=== PATIENT | male | born 1965 | race African-American/Black ===

== ENCOUNTER 2019-11-25 09:39 | Inpatient (IN) ==
[2019-11-25] MEDS ORDERED: CEFUROXIME INJ 1,500 MG in SYRINGE 1 EACH IV ONE (09:44)
[2019-11-25] MEDS ORDERED: DEXTROSE 50% 25 GM/50 ML VIAL IV PRN ×2 (09:44)
[2019-11-25] MEDS ORDERED: GLUCAGON 1 MG VIAL IM PRN ×2 (09:44)
[2019-11-25] MEDS ORDERED: SODIUM CHLORIDE 0.9% 1,000 ML IV SCH (10:00)
[2019-11-25 10:19] LABS: Basophils % 0.6 % (0.0-0.8); Eosinophils # 0.1 10*3/uL (0.0-0.87); Eosinophils % 2.2 % (0.00-10.9); Hematocrit 40.3 VOL% (42.0-52.0); Hemoglobin 13.3 GM/DL (14.0-18.0); Immature Granulocytes % 0.2 %; Immature Granulocytes Absolute 0.01 #; Lymphocytes % 31.8 % (21.2-54.2); Mean Platelet Volume 12.4 FL (9.6-12.0); Monocytes % 8.2 % (1.7-12.7); Platelet Count 165 T/CUMM (130-400); Red Blood Count 4.43 MC/CUMM (3.8-5.5); Red Cell Distribution Width 14.6 % (9.3-17.3); White Blood Count 6.4 T/CUMM (4-12)
[2019-11-25] MEDS ORDERED: MORPHINE 4 MG/1 ML VIAL IV PRN (10:23)
[2019-11-25] MEDS ORDERED: CLORAZEPATE 3.75 MG TABLET PO PRN (10:23)
[2019-11-25] MEDS ORDERED: ZALEPLON 5 MG CAPSULE PO PRN (10:23)
[2019-11-25] MEDS ORDERED: NITROGLYCERIN SL 0.4 MG TABLET SL PRN (10:24)
[2019-11-25 10:35] LABS: Hypochromasia 1+; Microcytosis Slight; Platelet Estimate Adequate
[2019-11-25 10:39] LABS: ABG Base Excess -1.7 MMOL/L (-2.5-2.5); ABG Oxygen Saturation 97.4 % (95-100); ABG PCO2 37.9 MM HG (35-48); ABG PH 7.389 (7.35-7.45); ABG PO2 93.7 MM HG (80-95)
[2019-11-25 10:42] LABS: Albumin 3.4 G/DL (3.4-5.0); Bilirubin,Total 0.7 MG/DL (0.2-1.0); Calcium 8.7 MG/DL (8.5-10.1); Osmolality,Calculated 284.7 MOS/KG (273-304); Total Protein 8.2 G/DL (6.4-8.3)
[2019-11-25] MEDS: ASPIRIN CHEW 81 MG TABLET PO SCH (10:53)
[2019-11-25] MEDS: cloNIDine 0.1 MG TABLET PO SCH ×3 (10:53→20:52)
[2019-11-25] MEDS: amLODIPine 10 MG TABLET PO SCH (10:55)
[2019-11-25] MEDS: PANTOPRAZOLE 40 MG TABLET PO SCH (10:55)
[2019-11-25] MEDS: INSULIN LISPRO 100 UNIT/ML SUBCUT SCH ×3 (11:32→23:27)
[2019-11-25] MEDS: CHLORHEXIDINE 0.12% ORAL RINSE 60 ML BOTTLE SWISH/SPIT SCH ×2 (12:00→20:58)
[2019-11-25] MEDS: CHLORHEXIDINE 4% SOLN 118 ML BOTTLE TOP SCH ×2 (15:08→20:53)
[2019-11-25] MEDS: ATORVASTATIN 20 MG TABLET PO SCH (20:52)
[2019-11-25] MEDS ORDERED: CALCIFEDIOL 30 MCG PO SCH (21:00)
[2019-11-26] MEDS ORDERED: PAPAVERINE 60 MG/2 ML VIAL ONE (04:20)
[2019-11-26] MEDS ORDERED: VANCOMYCIN 500 MG VIAL ONE (04:21)
[2019-11-26] MEDS ORDERED: VANCOMYCIN 1,000 MG VIAL ONE (04:21)
[2019-11-26] MEDS ORDERED: FAMOTIDINE 20 MG TABLET PO ONE (06:00)
[2019-11-26] MEDS ORDERED: METOPROLOL TARTRATE 25 MG TABLET PO ONE (06:00)
[2019-11-26] MEDS ORDERED: DIAZEPAM 5 MG TABLET PO ONE (06:00)
[2019-11-26] MEDS ORDERED: SUFentanil 250 MCG/5 ML AMP ONE (06:10)
[2019-11-26] MEDS ORDERED: MIDAZOLAM 10 MG/2 ML VIAL ONE (06:10)
[2019-11-26] MEDS ORDERED: CEFUROXIME INJ 1,500 MG in SYRINGE 1 EACH IV ONE (07:00)
[2019-11-26] MEDS ORDERED: SODIUM CHLORIDE 0.9% 1,000 ML IV SCH (07:00)
[2019-11-26] MEDS ORDERED: SODIUM BICARBONATE 50 MEQ/50 ML VIAL IV ONE ×2 (07:10→10:48)
[2019-11-26] MEDS ORDERED: NITROPRUSSIDE 50 MG/2 ML VIAL ONE (07:10)
[2019-11-26] MEDS ORDERED: CALCIUM CHLORIDE 1,000 MG/10 ML SYRINGE IV ONE (07:10)
[2019-11-26] MEDS ORDERED: PHENYLEPHRINE DRIP 40 MG/250 ML PREMIX IV ONE (07:10)
[2019-11-26] MEDS ORDERED: POTASSIUM CHLORIDE RIDER 100 ML IV ONE (07:11)
[2019-11-26] MEDS: INSULIN LISPRO 100 UNIT/ML SUBCUT SCH ×2 (07:30→11:30)
[2019-11-26 07:42] LABS: ABG Base Excess -1.7 MMOL/L (-2.5-2.5); ABG HCO3 23.1 MMOL/L (20-26); ABG Oxygen Saturation 99.9 % (95-100); ABG PCO2 37.5 MM HG (35-48); ABG PH 7.393 (7.35-7.45); ABG TCO2 20.2 MMOL/L (23-27); Glucose Heart Surgery 284 MG/DL (74-106); Hematocrit Heart Surgery 37.2 PERCENT (42-52); Hemoglobin Heart Surgery 12.1 G/DL (14.0-18.0); PCO2 Patient Temp Arterial 37.5 MMHG; PH Patient Temp Arterial 7.393; Patient Temperature 37 CELCIUS; Potassium Heart/CVR 4.3 MMOL/L (3.5-5.1); Sodium Heart/CVR 139 MMOL/L (135-145)
[2019-11-26 07:52] LABS: Apearance,Urine CLEAR (Clear); Bacteria,Urine Occasional /HPF (Few); Bilirubin,Urine Negative (Negative); Blood, Urine Small mg/dL (Negative); Glucose,Urine (UA) >=500 mg/dL (Negative); Ketones,Urine Negative (Negative); Nitrite,Urine Negative (Negative); Protein,Urine 30 MG/DL; RBC,Urine 1 /HPF (0-4); Squamous Epithelial Cell,Urine Occasional /HPF (0-10); Urine Color Straw (Yellow); Urine Specific Gravity 1.014 (1.001-1.035); Urine Urobilinogen < 2.0 EU/DL (0.2-1.0); WBC,Urine <1 /HPF (0-6)
[2019-11-26] MEDS: CHLORHEXIDINE 0.12% ORAL RINSE 60 ML BOTTLE SWISH/SPIT SCH (09:00)
[2019-11-26] MEDS: cloNIDine 0.1 MG TABLET PO SCH (09:00)
[2019-11-26] MEDS: amLODIPine 10 MG TABLET PO SCH (09:00)
[2019-11-26] MEDS: PANTOPRAZOLE 40 MG TABLET PO SCH (09:00)
[2019-11-26] MEDS: ASPIRIN CHEW 81 MG TABLET PO SCH (09:00)
[2019-11-26] MEDS: ATORVASTATIN 20 MG TABLET PO SCH (09:00)
[2019-11-26] MEDS: CHLORHEXIDINE 4% SOLN 118 ML BOTTLE TOP SCH (09:00)
[2019-11-26 09:21] LABS: Hematocrit Heart Surgery 23.9 PERCENT (42-52); PCO2 Patient Temp Venous 29.8 MM HG; PH Patient Temp Venous 7.481; PO2 Patient Temp Venous 40.2 MM HG; Potassium Heart/CVR 5.2 MMOL/L (3.5-5.1); VBG Base Excess -0.7 MEQ/L (0-4); VBG HCO3 23.7 MEQ/L (24-28); VBG Oxygen Saturation 87.5 %; VBG PCO2 34.4 MMHG (41-51); VBG PH 7.436; VBG PO2 49.3 MMHG (17-40)
[2019-11-26 09:23] LABS: Hemoglobin Heart Surgery 7.7 G/DL (14.0-18.0)
[2019-11-26] MEDS ORDERED: PHENYLEPHRINE DRIP 20 MG/250 ML PREMIX IV ONE (09:28)
[2019-11-26] MEDS ORDERED: HEPARIN/NACL 0.9% 2 UNITS/ML 500 ML IV ONE (09:28)
[2019-11-26] MEDS ORDERED: VECURONIUM 10 MG VIAL IV ONE ×2 (09:29→12:41)
[2019-11-26] MEDS ORDERED: NITROGLYCERIN DRIP 50 MG/250 ML BOTTLE IV ONE (09:29)
[2019-11-26 09:56] LABS: Hematocrit Heart Surgery 28.4 PERCENT (42-52); Hemoglobin Heart Surgery 9.2 G/DL (14.0-18.0); PCO2 Patient Temp Venous 26.3 MM HG; PH Patient Temp Venous 7.519; PO2 Patient Temp Venous 32.7 MM HG; Potassium Heart/CVR 3.9 MMOL/L (3.5-5.1); VBG Base Excess -0.7 MEQ/L (0-4); VBG HCO3 23.6 MEQ/L (24-28); VBG Oxygen Saturation 79.5 %; VBG PCO2 30.4 MMHG (41-51); VBG PH 7.474; VBG PO2 40.3 MMHG (17-40)
[2019-11-26 10:27] LABS: Hematocrit Heart Surgery 28.7 PERCENT (42-52); Hemoglobin Heart Surgery 9.2 G/DL (14.0-18.0); PCO2 Patient Temp Venous 31.3 MM HG; PH Patient Temp Venous 7.463; PO2 Patient Temp Venous 38.2 MM HG; Potassium Heart/CVR 3.9 MMOL/L (3.5-5.1); VBG Base Excess -0.7 MEQ/L (0-4); VBG HCO3 23.5 MEQ/L (24-28); VBG Oxygen Saturation 76.5 %; VBG PCO2 31.3 MMHG (41-51); VBG PH 7.463; VBG PO2 38.2 MMHG (17-40)
[2019-11-26] MEDS ORDERED: THROMBIN TOPICAL (RECOMBINANT) 5,000 UNIT VIAL TOP ONE (10:30)
[2019-11-26] MEDS ORDERED: MANNITOL 100 GM/500 ML BAG IV ONE (10:47)
[2019-11-26] MEDS ORDERED: LIDOCAINE 2% 5 ML VIAL ONE ×2 (10:47→12:41)
[2019-11-26] MEDS ORDERED: HEPARIN 10,000 UNIT/10 ML VIAL ONE (10:48)
[2019-11-26] MEDS ORDERED: PROTAMINE SULFATE 250 MG/25 ML VIAL IV ONE (10:48)
[2019-11-26] MEDS ORDERED: FUROSEMIDE 20 MG/2 ML VIAL ONE (10:48)
[2019-11-26] MEDS ORDERED: MAGNESIUM SULFATE 5 GM/10 ML VIAL IV ONE (10:48)
[2019-11-26] MEDS ORDERED: ALBUMIN 25% 25 GM/100 ML VIAL IV ONE (10:48)
[2019-11-26] MEDS ORDERED: DEXTROSE 5% KCL 20 MEQ 20 MEQ/1,000 ML BAG IV ONE (10:48)
[2019-11-26] MEDS ORDERED: methylPREDNISolone SOD SUC 1,000 MG/8 ML VIAL ONE (10:48)
[2019-11-26] MEDS ORDERED: PROTAMINE SULFATE 50 MG/5 ML VIAL IV ONE ×2 (10:49→12:18)
[2019-11-26 10:54] LABS: ABG Base Excess -2.8 MMOL/L (-2.5-2.5); ABG HCO3 22.1 MMOL/L (20-26); ABG Oxygen Saturation 99.9 % (95-100); ABG PCO2 28.2 MM HG (35-48); ABG PH 7.464 (7.35-7.45); ABG TCO2 18.8 MMOL/L (23-27); Glucose Heart Surgery 283 MG/DL (74-106); Hematocrit Heart Surgery 25.8 PERCENT (42-52); Hemoglobin Heart Surgery 8.3 G/DL (14.0-18.0); Ionized Calcium Arterial 1.13 MMOL/L (1.21-1.46); PCO2 Patient Temp Arterial 28.2 MMHG; PH Patient Temp Arterial 7.464; Patient Temperature 37 CELCIUS; Potassium Heart/CVR 3.5 MMOL/L (3.5-5.1); Sodium Heart/CVR 136 MMOL/L (135-145)
[2019-11-26] MEDS ORDERED: CALCIUM CHLORIDE 1,000 MG/10 ML SYRINGE IV PRN (11:32)
[2019-11-26] MEDS ORDERED: MIDAZOLAM 2 MG/2 ML VIAL IV PRN (11:32)
[2019-11-26] MEDS ORDERED: POTASSIUM CHLORIDE RIDER 10 MEQ in PREMIX 1 EACH IV SCH (11:32)
[2019-11-26] MEDS ORDERED: MAGNESIUM SULF RIDER 2 GM in PREMIX 1 EACH IV PRN (11:32)
[2019-11-26] MEDS ORDERED: VECURONIUM 10 MG VIAL IV PRN ×2 (11:32)
[2019-11-26] MEDS ORDERED: CHLORHEXIDINE 4% SOLN 118 ML BOTTLE TOP PRN (11:32)
[2019-11-26] MEDS ORDERED: DEXTROSE 10% 250 ML BAG IV PRN ×2 (11:32)
[2019-11-26] MEDS ORDERED: MIDAZOLAM 10 MG/2 ML VIAL IV PRN (11:32)
[2019-11-26] MEDS ORDERED: ACETAMINOPHEN 650 MG SUPP RECTAL PRN (11:32)
[2019-11-26] MEDS ORDERED: ONDANSETRON 4 MG/2 ML VIAL IV PRN (11:32)
[2019-11-26] MEDS ORDERED: INSULIN REGULAR 100 UNIT/ML IV PRN (11:32)
[2019-11-26] MEDS ORDERED: MORPHINE 4 MG/1 ML VIAL IV PRN (11:32)
[2019-11-26] MEDS ORDERED: INSULIN REGULAR DRIP 100 ML IV SCH (11:32)
[2019-11-26] MEDS ORDERED: NITROPRUSSIDE 100 MG in DEXTROSE 5% 250 ML IV PRN (11:32)
[2019-11-26] MEDS ORDERED: INSULIN REGULAR 100 UNIT/ML IV ONE (11:32)
[2019-11-26] MEDS ORDERED: MORPHINE 10 MG/1 ML VIAL IV PRN (11:32)
[2019-11-26] MEDS ORDERED: MAGNESIUM SULF RIDER 4 GM in PREMIX 1 EACH IV PRN (11:32)
[2019-11-26] MEDS ORDERED: SODIUM CHLORIDE 0.45% 1,000 ML IV SCH ×2 (11:32)
[2019-11-26] MEDS ORDERED: PHENYLEPHRINE DRIP 40 MG/250 ML PREMIX IV PRN (11:32)
[2019-11-26 12:30] LABS: ABG Base Excess -3.1 MMOL/L (-2.5-2.5); ABG HCO3 21.8 MMOL/L (20-26); ABG PCO2 30.1 MM HG (35-48); ABG PH 7.438 (7.35-7.45); ABG TCO2 18.8 MMOL/L (23-27); Glucose Heart Surgery 244 MG/DL (74-106); Hematocrit Heart Surgery 26.3 PERCENT (42-52); Hemoglobin Heart Surgery 8.5 G/DL (14.0-18.0)
[2019-11-26] MEDS: LACTATED RINGERS 250 ML IV PRN ×5 (12:30→23:00)
[2019-11-26 12:32] LABS: Basophils % 0.3 % (0.0-0.8); Eosinophils # 0.1 10*3/uL (0.0-0.87); Eosinophils % 0.7 % (0.00-10.9); Hematocrit 25.2 VOL% (42.0-52.0); Hemoglobin 8.4 GM/DL (14.0-18.0); Immature Granulocytes % 0.4 %; Immature Granulocytes Absolute 0.03 #; Lymphocytes # 0.8 10*3/uL (1.4-4.0); Lymphocytes % 11.6 % (21.2-54.2); Mean Corpuscular HGB Conc 33.3 GM/DL (32-36); Mean Corpuscular Volume 89.7 FL (87-102); Mean Platelet Volume 12.2 FL (9.6-12.0); Monocytes % 7.2 % (1.7-12.7); Neutrophils % 79.8 % (38.7-73.9); Platelet Count 97 T/CUMM (130-400); Red Blood Count 2.81 MC/CUMM (3.8-5.5); Red Cell Distribution Width 14.3 % (9.3-17.3)
[2019-11-26] MEDS: ALBUMIN 5% 12.5 GM in PREMIX 1 EACH IV PRN ×4 (12:35→14:50)
[2019-11-26] MEDS: POTASSIUM CHLORIDE RIDER 20 MEQ in PREMIX 1 EACH IV PRN ×7 (12:40→23:14)
[2019-11-26] MEDS ORDERED: ePHEDrine 50 MG/ML VIAL ONE (12:41)
[2019-11-26] MEDS ORDERED: SEVOFLURANE 1 UNIT/15 MINUTE INH ONE (12:41)
[2019-11-26] MEDS ORDERED: CALCIUM CHLORIDE 1,000 MG/10 ML VIAL IV ONE (12:41)
[2019-11-26] MEDS ORDERED: GLYCOPYRROLATE 0.4 MG/2 ML VIAL ONE (12:42)
[2019-11-26] MEDS ORDERED: SODIUM CHLORIDE 0.9% 250 ML IV ONE (12:42)
[2019-11-26] MEDS ORDERED: LACTATED RINGERS 1,000 ML IV ONE (12:42)
[2019-11-26] MEDS ORDERED: SODIUM CHLORIDE 0.9% 3,000 ML IV ONE (12:42)
[2019-11-26] MEDS ORDERED: SODIUM CHLORIDE 0.9% 200 ML IV ONE (12:42)
[2019-11-26] MEDS ORDERED: ETOMIDATE 40 MG/20 ML VIAL IV ONE (12:42)
[2019-11-26 12:46] LABS: INR 1.4; PT Patient Result 14.6 SECS (9.8-11.9); Partial Thromboplastin Time 36.5 SECS (23.9-33.8)
[2019-11-26 12:53] LABS: Albumin 2.5 G/DL (3.4-5.0); Bilirubin,Total 1.4 MG/DL (0.2-1.0); Calcium 7.2 MG/DL (8.5-10.1); Osmolality,Calculated 299.6 MOS/KG (273-304); Total Protein 4.7 G/DL (6.4-8.3)
[2019-11-26 13:06] LABS: CKMB % 4.5 %
[2019-11-26 13:08] LABS: Troponin I 5.84 NG/ML (0.00-0.045)
[2019-11-26 14:42] LABS: ABG Base Excess -3.4 MMOL/L (-2.5-2.5); ABG HCO3 21.6 MMOL/L (20-26); ABG Oxygen Saturation 99.5 % (95-100); ABG PCO2 28.4 MM HG (35-48); ABG PH 7.447 (7.35-7.45); ABG TCO2 17.7 MMOL/L (23-27); Glucose Heart Surgery 191 MG/DL (74-106); Hematocrit Heart Surgery 32.6 PERCENT (42-52); Hemoglobin Heart Surgery 10.6 G/DL (14.0-18.0); Potassium Heart/CVR 3.3 MMOL/L (3.5-5.1)
[2019-11-26 16:14] LABS: ABG Base Excess -3.4 MMOL/L (-2.5-2.5); ABG HCO3 19.1 MMOL/L (20-26); ABG Oxygen Saturation 98.4 % (95-100); ABG PH 7.485 (7.35-7.45); ABG PO2 172.5 MM HG (80-95); ABG TCO2 19.9 MMOL/L (23-27); Glucose Heart Surgery 157 MG/DL (74-106); Hemoglobin Heart Surgery 9.2 G/DL (14.0-18.0)
[2019-11-26 18:06] LABS: ABG Base Excess -2.2 MMOL/L (-2.5-2.5); ABG HCO3 19.9 MMOL/L (20-26); ABG Oxygen Saturation 98.5 % (95-100); ABG PCO2 24.7 MM HG (35-48); ABG PH 7.525 (7.35-7.45); ABG PO2 180.9 MM HG (80-95); ABG TCO2 20.7 MMOL/L (23-27); Glucose Heart Surgery 157 MG/DL (74-106); Hemoglobin Heart Surgery 7.9 G/DL (14.0-18.0); Potassium Heart/CVR 3.8 MMOL/L (3.5-5.1)
[2019-11-26] MEDS: CEFUROXIME INJ 1,500 MG in SYRINGE 1 EACH IV SCH (19:47)
[2019-11-26 20:06] LABS: ABG Base Excess -1.9 MMOL/L (-2.5-2.5); ABG HCO3 20.2 MMOL/L (20-26); ABG Oxygen Saturation 98.6 % (95-100); ABG PCO2 25.8 MM HG (35-48); ABG PH 7.512 (7.35-7.45); ABG PO2 190.8 MM HG (80-95); Glucose Heart Surgery 150 MG/DL (74-106); Hemoglobin Heart Surgery 9.6 G/DL (14.0-18.0); Potassium Heart/CVR 3.8 MMOL/L (3.5-5.1)
[2019-11-26 20:27] LABS: CKMB % 2.4 %
[2019-11-26 20:29] LABS: Troponin I 11.8 NG/ML (0.00-0.045)
[2019-11-26] MEDS ORDERED: CHLORHEXIDINE 0.12% ORAL RINSE 60 ML BOTTLE SWISH/SPIT SCH (21:00)
[2019-11-26] MEDS ORDERED: FUROSEMIDE 40 MG/4 ML VIAL IV ONE (22:42)
[2019-11-27 00:10] LABS: ABG Base Excess -1.3 MMOL/L (-2.5-2.5); ABG HCO3 20.4 MMOL/L (20-26); ABG Oxygen Saturation 98.7 % (95-100); ABG PCO2 25.6 MM HG (35-48); ABG PO2 166.8 MM HG (80-95); ABG TCO2 21.2 MMOL/L (23-27); Glucose Heart Surgery 106 MG/DL (74-106); Hemoglobin Heart Surgery 11.2 G/DL (14.0-18.0); Potassium Heart/CVR 4.1 MMOL/L (3.5-5.1)
[2019-11-27 01:25] LABS: ABG Base Excess -1.2 MMOL/L (-2.5-2.5); ABG HCO3 23.4 MMOL/L (20-26); ABG Oxygen Saturation 99.8 % (95-100); ABG PCO2 27.9 MM HG (35-48); ABG PH 7.487 (7.35-7.45); ABG TCO2 18.9 MMOL/L (23-27); Glucose Heart Surgery 105 MG/DL (74-106); Hematocrit Heart Surgery 34.1 PERCENT (42-52); Hemoglobin Heart Surgery 11.1 G/DL (14.0-18.0); Potassium Heart/CVR 3.9 MMOL/L (3.5-5.1)
[2019-11-27] MEDS: POTASSIUM CHLORIDE RIDER 20 MEQ in PREMIX 1 EACH IV PRN ×2 (01:33→02:05)
[2019-11-27 02:21] LABS: ABG Base Excess -2.1 MMOL/L (-2.5-2.5); ABG HCO3 22.6 MMOL/L (20-26); ABG Oxygen Saturation 99.3 % (95-100); ABG PH 7.424 (7.35-7.45); ABG TCO2 19.3 MMOL/L (23-27); Glucose Heart Surgery 125 MG/DL (74-106); Hematocrit Heart Surgery 33.8 PERCENT (42-52); Potassium Heart/CVR 4.7 MMOL/L (3.5-5.1)
[2019-11-27 04:25] LABS: ABG Base Excess -3.2 MMOL/L (-2.5-2.5); ABG HCO3 21.7 MMOL/L (20-26); ABG Oxygen Saturation 97.6 % (95-100); ABG PCO2 35.9 MM HG (35-48); ABG PH 7.381 (7.35-7.45); ABG PO2 91.4 MM HG (80-95); ABG TCO2 19.2 MMOL/L (23-27); Glucose Heart Surgery 182 MG/DL (74-106); Potassium Heart/CVR 5.2 MMOL/L (3.5-5.1)
[2019-11-27 05:06] LABS: Albumin 3.7 G/DL (3.4-5.0); Bilirubin,Direct 0.26 MG/DL (0.0-0.20); Bilirubin,Total 1.4 MG/DL (0.2-1.0); Calcium 8.2 MG/DL (8.5-10.1); Osmolality,Calculated 292.8 MOS/KG (273-304); Total Protein 6.3 G/DL (6.4-8.3)
[2019-11-27 05:10] LABS: CKMB % 1.5 %
[2019-11-27 05:49] LABS: Troponin I 13.7 NG/ML (0.00-0.045)
[2019-11-27] MEDS: CEFUROXIME INJ 1,500 MG in SYRINGE 1 EACH IV SCH (06:34)
[2019-11-27 06:44] LABS: Basophils % 0.2 % (0.0-0.8); Hematocrit 31.7 VOL% (42.0-52.0); Hemoglobin 10.9 GM/DL (14.0-18.0); Immature Granulocytes % 0.3 %; Immature Granulocytes Absolute 0.04 #; Lymphocytes # 0.6 10*3/uL (1.4-4.0); Lymphocytes % 4.6 % (21.2-54.2); Mean Corpuscular HGB Conc 34.4 GM/DL (32-36); Mean Corpuscular Volume 84.5 FL (87-102); Mean Platelet Volume 12.4 FL (9.6-12.0); Monocytes % 4.8 % (1.7-12.7); Neutrophils % 90.1 % (38.7-73.9); Platelet Count 140 T/CUMM (130-400); Red Blood Count 3.75 MC/CUMM (3.8-5.5); Red Cell Distribution Width 15.7 % (9.3-17.3); White Blood Count 12.1 T/CUMM (4-12)
[2019-11-27 07:52] LABS: Band Neutrophils 6 % (0-10); Lymphocytes 3 % (20-55); Segmented Neutrophils 88 % (50-85); Total Cells Counted 100
[2019-11-27 07:53] LABS: Hypochromasia 2+; Platelet Estimate Adequate
[2019-11-27 07:54] LABS: Anisocytosis 1+; Macrocytosis 1+; Ovalocytes 1+
[2019-11-27] MEDS ORDERED: INSULIN REGULAR 100 UNIT/ML SUBCUT SCH ×2 (08:00→11:30)
[2019-11-27 08:16] LABS: ABG Base Excess -1.8 MMOL/L (-2.5-2.5); ABG HCO3 22.9 MMOL/L (20-26); ABG Oxygen Saturation 96.4 % (95-100); ABG PCO2 35.2 MM HG (35-48); ABG PO2 77.9 MM HG (80-95); ABG TCO2 20.1 MMOL/L (23-27); Glucose Heart Surgery 158 MG/DL (74-106); Hematocrit Heart Surgery 33.2 PERCENT (42-52); Hemoglobin Heart Surgery 10.7 G/DL (14.0-18.0); Potassium Heart/CVR 4.3 MMOL/L (3.5-5.1)
[2019-11-27] MEDS ORDERED: MORPHINE 4 MG/1 ML VIAL IV PRN (08:55)
[2019-11-27] MEDS ORDERED: ONDANSETRON 4 MG/2 ML VIAL IV PRN (08:55)
[2019-11-27] MEDS ORDERED: MAGNESIUM SULF RIDER 2 GM in PREMIX 1 EACH IV PRN (08:55)
[2019-11-27] MEDS ORDERED: POTASSIUM CHLORIDE 20 MEQ TABLET PO PRN (08:55)
[2019-11-27] MEDS ORDERED: DEXTROSE 50% 25 GM/50 ML VIAL IV PRN ×2 (08:55)
[2019-11-27] MEDS ORDERED: ALUMINUM/MAGNES/SIMETH MAX STR 30 ML UDCUP PO PRN (08:55)
[2019-11-27] MEDS ORDERED: MAGNESIUM SULF RIDER 4 GM in PREMIX 1 EACH IV PRN (08:55)
[2019-11-27] MEDS ORDERED: ZALEPLON 5 MG CAPSULE PO PRN (08:55)
[2019-11-27] MEDS ORDERED: GLUCAGON 1 MG VIAL IM PRN ×2 (08:55)
[2019-11-27] MEDS ORDERED: MAGNESIUM HYDROXIDE SUSP 30 ML UDCUP PO PRN (08:55)
[2019-11-27] MEDS ORDERED: ACETAMINOPHEN 325 MG TABLET PO PRN (08:55)
[2019-11-27] MEDS ORDERED: BIMATOPROST 0.01% OPH SOLN 2.5 ML BOTTLE BOTH EYES SCH (09:00)
[2019-11-27] MEDS: FUROSEMIDE 40 MG TABLET PO SCH (09:14)
[2019-11-27] MEDS: PANTOPRAZOLE 40 MG TABLET PO SCH (09:14)
[2019-11-27] MEDS: sitaGLIPtin 25 MG TABLET PO SCH (09:14)
[2019-11-27] MEDS: ATORVASTATIN 20 MG TABLET PO SCH (09:14)
[2019-11-27] MEDS: ASPIRIN EC 325 MG TABLET PO SCH (09:14)
[2019-11-27] MEDS: cloNIDine 0.1 MG TABLET PO SCH ×3 (09:14→22:26)
[2019-11-27] MEDS: FERROUS SULFATE 325 MG TABLET PO SCH (09:15)
[2019-11-27] MEDS: DOCUSATE SODIUM 100 MG CAPSULE PO SCH (09:15)
[2019-11-27] MEDS: CHLORHEXIDINE 0.12% ORAL RINSE 60 ML BOTTLE SWISH/SPIT SCH ×2 (09:15→22:28)
[2019-11-27] MEDS: METOPROLOL SUCCINATE XL 25 MG TABLET PO SCH (09:15)
[2019-11-27] MEDS: SODIUM CHLOR 0.45% KCL 20 MEQ 20 MEQ/1,000 ML BAG IV SCH (09:25)
[2019-11-27] MEDS: amLODIPine 10 MG TABLET PO SCH (09:31)
[2019-11-27] MEDS: INSULIN REGULAR 100 UNIT/ML SUBCUT SCH ×3 (11:54→22:26)
[2019-11-27] MEDS ORDERED: INSULIN GLARGINE 100 UNIT/ML SUBCUT SCH (21:00)
[2019-11-28] MEDS: INSULIN REGULAR 100 UNIT/ML SUBCUT SCH ×6 (02:43→22:02)
[2019-11-28] MEDS ORDERED: FUROSEMIDE 40 MG/4 ML VIAL IV ONE (06:00)
[2019-11-28 06:44] LABS: Basophils % 0.2 % (0.0-0.8); Hematocrit 34.6 VOL% (42.0-52.0); Hemoglobin 11.1 GM/DL (14.0-18.0); Immature Granulocytes % 1.4 %; Immature Granulocytes Absolute 0.17 #; Lymphocytes # 0.9 10*3/uL (1.4-4.0); Mean Corpuscular HGB Conc 32.1 GM/DL (32-36); Mean Corpuscular Volume 90.8 FL (87-102); Mean Platelet Volume 12.3 FL (9.6-12.0); Monocytes % 9.1 % (1.7-12.7); Neutrophils % 82.3 % (38.7-73.9); Platelet Count 127 T/CUMM (130-400); Red Blood Count 3.81 MC/CUMM (3.8-5.5); Red Cell Distribution Width 16.6 % (9.3-17.3); White Blood Count 12.4 T/CUMM (4-12)
[2019-11-28 07:13] LABS: Alanine Aminotransferase 18 U/L (16-61); Albumin 3.2 G/DL (3.4-5.0); Alkaline Phosphatase 51 U/L (45-117); Aspartate Amino Transferase 32 U/L (0-37); Bilirubin,Indirect 0.6 MG/DL (0.0-1.0); Blood Urea Nitrogen 30 MG/DL (7-18); Estimated Glom Filtration Rate 45 ML/MIN; Glucose 236 MG/DL (74-106); Osmolality,Calculated 296.1 MOS/KG (273-304); Total Protein 6.5 G/DL (6.4-8.3)
[2019-11-28] MEDS: sitaGLIPtin 25 MG TABLET PO SCH (09:17)
[2019-11-28] MEDS: PANTOPRAZOLE 40 MG TABLET PO SCH (09:18)
[2019-11-28] MEDS: METOPROLOL SUCCINATE XL 25 MG TABLET PO SCH (09:18)
[2019-11-28] MEDS: ATORVASTATIN 20 MG TABLET PO SCH (09:18)
[2019-11-28] MEDS: amLODIPine 10 MG TABLET PO SCH (09:18)
[2019-11-28] MEDS: FERROUS SULFATE 325 MG TABLET PO SCH (09:18)
[2019-11-28] MEDS: FUROSEMIDE 40 MG TABLET PO SCH (09:18)
[2019-11-28] MEDS: cloNIDine 0.1 MG TABLET PO SCH ×3 (09:18→22:02)
[2019-11-28] MEDS: DOCUSATE SODIUM 100 MG CAPSULE PO SCH (09:18)
[2019-11-28] MEDS: ASPIRIN EC 325 MG TABLET PO SCH (09:18)
[2019-11-28] MEDS: CHLORHEXIDINE 0.12% ORAL RINSE 60 ML BOTTLE SWISH/SPIT SCH ×2 (09:19→22:03)
[2019-11-28] MEDS: SODIUM CHLOR 0.45% KCL 20 MEQ 20 MEQ/1,000 ML BAG IV SCH (09:26)
[2019-11-29] MEDS: INSULIN REGULAR 100 UNIT/ML SUBCUT SCH ×6 (00:51→21:02)
[2019-11-29] MEDS: oxyCODONE/ACETAMINOPHEN 5-325 MG TABLET PO PRN (00:54)
[2019-11-29 06:20] LABS: Basophils % 0.1 % (0.0-0.8); Eosinophils # 0.1 10*3/uL (0.0-0.87); Eosinophils % 0.5 % (0.00-10.9); Hematocrit 32.3 VOL% (42.0-52.0); Hemoglobin 10.4 GM/DL (14.0-18.0); Immature Granulocytes % 0.7 %; Immature Granulocytes Absolute 0.08 #; Lymphocytes # 1.3 10*3/uL (1.4-4.0); Lymphocytes % 12.4 % (21.2-54.2); Mean Corpuscular HGB Conc 32.2 GM/DL (32-36); Monocytes % 8.8 % (1.7-12.7); Neutrophils % 77.5 % (38.7-73.9); Platelet Count 112 T/CUMM (130-400); Red Blood Count 3.55 MC/CUMM (3.8-5.5); Red Cell Distribution Width 16.3 % (9.3-17.3); White Blood Count 10.7 T/CUMM (4-12)
[2019-11-29 06:50] LABS: Calcium 7.9 MG/DL (8.5-10.1)
[2019-11-29 06:53] LABS: Alanine Aminotransferase 20 U/L (16-61); Albumin 2.7 G/DL (3.4-5.0); Alkaline Phosphatase 52 U/L (45-117); Aspartate Amino Transferase 26 U/L (0-37); Bilirubin,Indirect 0.7 MG/DL (0.0-1.0); Blood Urea Nitrogen 43 MG/DL (7-18); Calcium 8.2 MG/DL (8.5-10.1); Estimated Glom Filtration Rate 43 ML/MIN; Glucose 136 MG/DL (74-106); Osmolality,Calculated 295.1 MOS/KG (273-304); Total Protein 6.3 G/DL (6.4-8.3)
[2019-11-29] MEDS: amLODIPine 10 MG TABLET PO SCH (08:58)
[2019-11-29] MEDS: sitaGLIPtin 25 MG TABLET PO SCH (08:58)
[2019-11-29] MEDS: FUROSEMIDE 40 MG TABLET PO SCH (08:58)
[2019-11-29] MEDS: cloNIDine 0.1 MG TABLET PO SCH ×3 (08:58→21:02)
[2019-11-29] MEDS: FERROUS SULFATE 325 MG TABLET PO SCH (08:58)
[2019-11-29] MEDS: PANTOPRAZOLE 40 MG TABLET PO SCH (08:59)
[2019-11-29] MEDS: ASPIRIN EC 325 MG TABLET PO SCH (08:59)
[2019-11-29] MEDS: CHLORHEXIDINE 0.12% ORAL RINSE 60 ML BOTTLE SWISH/SPIT SCH ×2 (08:59→21:02)
[2019-11-29] MEDS: ATORVASTATIN 20 MG TABLET PO SCH (08:59)
[2019-11-29] MEDS: DOCUSATE SODIUM 100 MG CAPSULE PO SCH (08:59)
[2019-11-29] MEDS: METOPROLOL SUCCINATE XL 25 MG TABLET PO SCH (08:59)
[2019-11-30] MEDS: oxyCODONE/ACETAMINOPHEN 5-325 MG TABLET PO PRN (02:40)
[2019-11-30 05:57] LABS: Basophils % 0.2 % (0.0-0.8); Eosinophils # 0.2 10*3/uL (0.0-0.87); Hematocrit 31.5 VOL% (42.0-52.0); Immature Granulocytes % 0.6 %; Immature Granulocytes Absolute 0.06 #; Lymphocytes # 1.2 10*3/uL (1.4-4.0); Lymphocytes % 11.9 % (21.2-54.2); Mean Corpuscular HGB Conc 31.7 GM/DL (32-36); Mean Corpuscular Volume 90.5 FL (87-102); Mean Platelet Volume 12.5 FL (9.6-12.0); Monocytes % 9.3 % (1.7-12.7); Platelet Count 128 T/CUMM (130-400); Red Blood Count 3.48 MC/CUMM (3.8-5.5); Red Cell Distribution Width 16.2 % (9.3-17.3); White Blood Count 10.3 T/CUMM (4-12)
[2019-11-30 06:26] LABS: Osmolality,Calculated 295.4 MOS/KG (273-304)
[2019-11-30] MEDS: PANTOPRAZOLE 40 MG TABLET PO SCH (08:09)
[2019-11-30] MEDS: DOCUSATE SODIUM 100 MG CAPSULE PO SCH (08:09)
[2019-11-30] MEDS: ASPIRIN EC 325 MG TABLET PO SCH (08:09)
[2019-11-30] MEDS: amLODIPine 10 MG TABLET PO SCH (08:09)
[2019-11-30] MEDS: sitaGLIPtin 25 MG TABLET PO SCH (08:09)
[2019-11-30] MEDS: ATORVASTATIN 20 MG TABLET PO SCH (08:09)
[2019-11-30] MEDS: FERROUS SULFATE 325 MG TABLET PO SCH (08:09)
[2019-11-30] MEDS: cloNIDine 0.1 MG TABLET PO SCH ×3 (08:09→20:45)
[2019-11-30] MEDS: INSULIN REGULAR 100 UNIT/ML SUBCUT SCH ×4 (08:10→20:45)
[2019-11-30] MEDS: METOPROLOL SUCCINATE XL 25 MG TABLET PO SCH (08:10)
[2019-11-30] MEDS: FUROSEMIDE 40 MG TABLET PO SCH (08:10)
[2019-11-30] MEDS: CHLORHEXIDINE 0.12% ORAL RINSE 60 ML BOTTLE SWISH/SPIT SCH ×2 (08:11→20:45)
[2019-11-30] MEDS ORDERED: LACTULOSE 20 GM/30 ML UDCUP PO PRN (09:37)
[2019-11-30] MEDS: POLYETHYLENE GLYCOL POWDER 17 GM PACK PO SCH (12:27)
[2019-12-01 05:17] LABS: Basophils % 0.5 % (0.0-0.8); Eosinophils # 0.2 10*3/uL (0.0-0.87); Eosinophils % 2.7 % (0.00-10.9); Hematocrit 31.5 VOL% (42.0-52.0); Hemoglobin 9.9 GM/DL (14.0-18.0); Immature Granulocytes % 0.6 %; Immature Granulocytes Absolute 0.05 #; Lymphocytes # 1.2 10*3/uL (1.4-4.0); Lymphocytes % 14.3 % (21.2-54.2); Mean Corpuscular HGB Conc 31.4 GM/DL (32-36); Mean Corpuscular Volume 92.4 FL (87-102); Mean Platelet Volume 12.6 FL (9.6-12.0); Monocytes % 9.6 % (1.7-12.7); Neutrophils % 72.3 % (38.7-73.9); Platelet Count 138 T/CUMM (130-400); Red Blood Count 3.41 MC/CUMM (3.8-5.5); Red Cell Distribution Width 16.2 % (9.3-17.3)
[2019-12-01 05:49] LABS: Alanine Aminotransferase 67 U/L (16-61); Albumin 2.6 G/DL (3.4-5.0); Alkaline Phosphatase 76 U/L (45-117); Aspartate Amino Transferase 47 U/L (0-37); Bilirubin,Indirect 0.4 MG/DL (0.0-1.0); Blood Urea Nitrogen 43 MG/DL (7-18); Calcium 7.9 MG/DL (8.5-10.1); Estimated Glom Filtration Rate 45 ML/MIN; Glucose 163 MG/DL (74-106); Osmolality,Calculated 300.8 MOS/KG (273-304); Total Protein 6.2 G/DL (6.4-8.3)
[2019-12-01] MEDS: PANTOPRAZOLE 40 MG TABLET PO SCH (09:38)
[2019-12-01] MEDS: cloNIDine 0.1 MG TABLET PO SCH (09:38)
[2019-12-01] MEDS: FUROSEMIDE 40 MG TABLET PO SCH (09:38)
[2019-12-01] MEDS: ASPIRIN EC 325 MG TABLET PO SCH (09:38)
[2019-12-01] MEDS: FERROUS SULFATE 325 MG TABLET PO SCH (09:39)
[2019-12-01] MEDS: amLODIPine 10 MG TABLET PO SCH (09:39)
[2019-12-01] MEDS: ATORVASTATIN 20 MG TABLET PO SCH (09:39)
[2019-12-01] MEDS: METOPROLOL SUCCINATE XL 25 MG TABLET PO SCH (09:39)
[2019-12-01] MEDS: DOCUSATE SODIUM 100 MG CAPSULE PO SCH (09:39)
[2019-12-01] MEDS: sitaGLIPtin 25 MG TABLET PO SCH (09:39)
[2019-12-01] MEDS: INSULIN REGULAR 100 UNIT/ML SUBCUT SCH ×2 (09:39→12:29)
[2019-12-01] MEDS: POLYETHYLENE GLYCOL POWDER 17 GM PACK PO SCH (09:40)
[2019-12-01] MEDS: CHLORHEXIDINE 0.12% ORAL RINSE 60 ML BOTTLE SWISH/SPIT SCH (09:40)
[2019-12-01 11:12] VITALS: BP 143/76
== END 2019-12-01 16:00 | disposition home health service (06) | DRG 236 ==
LOC: N.TELEN 09:39 → N.CVR 11-26 10:48 → N.TELES 11-27 12:43

== ENCOUNTER 2019-12-21 19:06 | Inpatient (IN) ==
[2019-12-21 20:11] LABS: Basophils % 0.2 % (0.0-0.8); Eosinophils # 0.1 10*3/uL (0.0-0.87); Eosinophils % 0.6 % (0.00-10.9); Hematocrit 32.5 VOL% (42.0-52.0); Immature Granulocytes % 0.5 %; Immature Granulocytes Absolute 0.06 #; Lymphocytes # 1.6 10*3/uL (1.4-4.0); Lymphocytes % 13.7 % (21.2-54.2); Mean Corpuscular HGB Conc 30.8 GM/DL (32-36); Mean Corpuscular Volume 92.9 FL (87-102); Monocytes % 8.3 % (1.7-12.7); NRBC # 0.05 10*3/uL; Neutrophils % 76.7 % (38.7-73.9); Platelet Count 246 T/CUMM (130-400); Red Cell Distribution Width 17.5 % (9.3-17.3); White Blood Count 11.8 T/CUMM (4-12)
[2019-12-21 20:22] LABS: INR 1.3; Partial Thromboplastin Time 24.9 SECS (23.9-33.8)
[2019-12-21 20:30] LABS: Albumin 2.8 G/DL (3.4-5.0); Bilirubin,Total 2.2 MG/DL (0.2-1.0); Calcium 7.9 MG/DL (8.5-10.1); Osmolality,Calculated 303.8 MOS/KG (273-304); Total Protein 7.7 G/DL (6.4-8.3)
[2019-12-21 20:40] LABS: Troponin I 0.472 NG/ML (0.00-0.045)
[2019-12-21] MEDS ORDERED: FUROSEMIDE 40 MG/4 ML VIAL IV STA (22:46)
[2019-12-22] MEDS ORDERED: DEXTROSE 50% 25 GM/50 ML VIAL IV PRN ×3 (00:22→14:56)
[2019-12-22] MEDS ORDERED: ONDANSETRON 4 MG/2 ML VIAL IV PRN ×2 (00:22→14:56)
[2019-12-22] MEDS ORDERED: GLUCAGON 1 MG VIAL IM PRN ×2 (00:22→00:32)
[2019-12-22] MEDS ORDERED: INSULIN GLARGINE 100 UNIT/ML SUBCUT SCH (01:00)
[2019-12-22 04:07] LABS: Basophils % 0.2 % (0.0-0.8); Eosinophils % 0.1 % (0.00-10.9); Hematocrit 31.5 VOL% (42.0-52.0); Hemoglobin 9.6 GM/DL (14.0-18.0); Immature Granulocytes % 0.6 %; Immature Granulocytes Absolute 0.07 #; Lymphocytes # 1.5 10*3/uL (1.4-4.0); Lymphocytes % 12.5 % (21.2-54.2); Mean Corpuscular HGB Conc 30.5 GM/DL (32-36); Mean Corpuscular Volume 93.8 FL (87-102); Mean Platelet Volume 11.8 FL (9.6-12.0); Monocytes % 9.2 % (1.7-12.7); NRBC # 0.06 10*3/uL; Neutrophils % 77.4 % (38.7-73.9); Platelet Count 235 T/CUMM (130-400); Red Blood Count 3.36 MC/CUMM (3.8-5.5); Red Cell Distribution Width 17.4 % (9.3-17.3)
[2019-12-22] MEDS ORDERED: ENOXAPARIN 80 MG/0.8 ML SYRINGE SUBCUT STA (04:07)
[2019-12-22 04:37] LABS: ABG Base Excess -7.2 MMOL/L (-2.5-2.5); ABG HCO3 18.5 MMOL/L (20-26); ABG PCO2 25.5 MM HG (35-48); ABG PH 7.411 (7.35-7.45); ABG PO2 74.9 MM HG (80-95); ABG TCO2 14.8 MMOL/L (23-27); Allen Test Positive
[2019-12-22 04:39] LABS: Calcium 8.1 MG/DL (8.5-10.1); Osmolality,Calculated 307.7 MOS/KG (273-304)
[2019-12-22 04:55] LABS: Amorphous Crystals,Urine Occasional /HPF (Few); Apearance,Urine Slightly Hazy (Clear); Bacteria,Urine Occasional /HPF (Few); Bilirubin,Urine Negative (Negative); Blood, Urine Negative (Negative); Glucose,Urine (UA) Negative (Negative); Hyaline Casts,Urine 17 /LPF (0-3); Ketones,Urine Negative (Negative); Mucus,Urine Occasional /LPF (Occasional); Nitrite,Urine Negative (Negative); Protein,Urine 100 MG/DL; RBC,Urine 2 /HPF (0-4); Squamous Epithelial Cell,Urine Occasional /HPF (0-10); Urine Color Yellow (Yellow); Urine Specific Gravity 1.013 (1.001-1.035); WBC,Urine 1 /HPF (0-6)
[2019-12-22] MEDS: INSULIN REGULAR 100 UNIT/ML SUBCUT SCH ×2 (07:50→12:33)
[2019-12-22] MEDS ORDERED: METOPROLOL SUCCINATE XL 25 MG TABLET PO SCH (09:00)
[2019-12-22] MEDS ORDERED: cloNIDine 0.1 MG TABLET PO SCH (09:00)
[2019-12-22] MEDS ORDERED: ENOXAPARIN 30 MG/0.3 ML SYRINGE SUBCUT SCH (09:00)
[2019-12-22] MEDS ORDERED: FUROSEMIDE 40 MG/4 ML VIAL IV SCH (09:00)
[2019-12-22] MEDS ORDERED: sitaGLIPtin 25 MG TABLET PO SCH (09:00)
[2019-12-22] MEDS ORDERED: PANTOPRAZOLE 40 MG TABLET PO SCH (09:00)
[2019-12-22 10:09] LABS: ABG Base Excess -7.8 MMOL/L (-2.5-2.5); ABG HCO3 18.1 MMOL/L (20-26); ABG Oxygen Saturation 96.3 % (95-100); ABG PCO2 24.7 MM HG (35-48); ABG PH 7.409 (7.35-7.45); ABG PO2 85.9 MM HG (80-95); ABG TCO2 14.3 MMOL/L (23-27); Allen Test Positive; Pt O2 Delivery Device Venturi Mask
[2019-12-22] MEDS ORDERED: MIDAZOLAM 2 MG/2 ML VIAL ONE (11:00)
[2019-12-22] MEDS ORDERED: LIDOCAINE 1% 20 ML VIAL ONE (11:00)
[2019-12-22] MEDS ORDERED: HYDROmorphone 2 MG/1 ML VIAL ONE (11:00)
[2019-12-22] MEDS ORDERED: HEPARIN/NACL 0.9% 2 UNITS/ML 500 ML IV ONE ×2 (11:00→12:37)
[2019-12-22 11:28] LABS: Lymphocytes,Pleural Fluid 71 %; Monocytes,Pleural Fluid 3 %; Neutrophils,Pleural Fluid 26 %
[2019-12-22 11:32] LABS: RBC,Pleural Fluid 86576 T/CUMM
[2019-12-22] MEDS ORDERED: NALOXONE 0.4 MG/ML VIAL ONE (11:37)
[2019-12-22] MEDS ORDERED: SUFentanil 250 MCG/5 ML AMP ONE (13:03)
[2019-12-22] MEDS ORDERED: MIDAZOLAM 10 MG/2 ML VIAL ONE (13:03)
[2019-12-22] MEDS ORDERED: PHENYLEPHRINE DRIP 20 MG/250 ML PREMIX IV ONE (13:04)
[2019-12-22] MEDS ORDERED: VANCOMYCIN 1,000 MG VIAL ONE (13:26)
[2019-12-22] MEDS ORDERED: PAPAVERINE 60 MG/2 ML VIAL ONE (13:26)
[2019-12-22] MEDS ORDERED: VANCOMYCIN 500 MG VIAL ONE (13:26)
[2019-12-22] MEDS ORDERED: CEFUROXIME 1,500 MG VIAL ONE (13:27)
[2019-12-22] MEDS ORDERED: NOREPINEPHRINE 4 MG/4 ML VIAL IV ONE (13:40)
[2019-12-22] MEDS ORDERED: ALBUMIN 5% 12.5 GM/250 ML VIAL IV ONE (13:43)
[2019-12-22] MEDS ORDERED: POTASSIUM CHLORIDE RIDER 0 ML IV ONE (13:47)
[2019-12-22] MEDS ORDERED: MIDAZOLAM 2 MG/2 ML VIAL IV PRN (14:56)
[2019-12-22] MEDS ORDERED: LACTATED RINGERS 250 ML IV PRN (14:56)
[2019-12-22] MEDS ORDERED: ALBUMIN 5% 12.5 GM in PREMIX 1 EACH IV PRN (14:56)
[2019-12-22] MEDS ORDERED: CALCIUM CHLORIDE 1,000 MG/10 ML SYRINGE IV PRN (14:56)
[2019-12-22] MEDS ORDERED: CHLORHEXIDINE 4% SOLN 118 ML BOTTLE TOP PRN (14:56)
[2019-12-22] MEDS ORDERED: MORPHINE 10 MG/1 ML VIAL IV PRN (14:56)
[2019-12-22] MEDS ORDERED: MAGNESIUM SULF RIDER 4 GM in PREMIX 1 EACH IV PRN (14:56)
[2019-12-22] MEDS ORDERED: MIDAZOLAM 10 MG/2 ML VIAL IV PRN (14:56)
[2019-12-22] MEDS ORDERED: INSULIN REGULAR DRIP 100 ML IV SCH (14:56)
[2019-12-22] MEDS ORDERED: INSULIN REGULAR 100 UNIT/ML IV ONE (14:56)
[2019-12-22] MEDS ORDERED: POTASSIUM CHLORIDE RIDER 20 MEQ in PREMIX 1 EACH IV PRN (14:56)
[2019-12-22] MEDS ORDERED: ACETAMINOPHEN 650 MG SUPP RECTAL PRN (14:56)
[2019-12-22] MEDS ORDERED: PHENYLEPHRINE DRIP 40 MG/250 ML PREMIX IV PRN (14:56)
[2019-12-22] MEDS ORDERED: SODIUM CHLORIDE 0.45% 1,000 ML IV SCH (14:56)
[2019-12-22] MEDS ORDERED: NITROPRUSSIDE 100 MG in DEXTROSE 5% 250 ML IV PRN (14:56)
[2019-12-22] MEDS ORDERED: MAGNESIUM SULF RIDER 2 GM in PREMIX 1 EACH IV PRN (14:56)
[2019-12-22] MEDS ORDERED: INSULIN REGULAR 100 UNIT/ML IV PRN (14:56)
[2019-12-22] MEDS ORDERED: VECURONIUM 10 MG VIAL IV PRN ×2 (14:56)
[2019-12-22] MEDS ORDERED: SEVOFLURANE 1 UNIT/15 MINUTE INH ONE (15:10)
[2019-12-22] MEDS ORDERED: LIDOCAINE 2% 5 ML VIAL ONE (15:10)
[2019-12-22] MEDS ORDERED: VECURONIUM 10 MG VIAL IV ONE (15:11)
[2019-12-22] MEDS ORDERED: ETOMIDATE 40 MG/20 ML VIAL IV ONE (15:11)
[2019-12-22] MEDS ORDERED: SUCCINYLCHOLINE 200 MG/10 ML VIAL ONE (15:11)
[2019-12-22] MEDS ORDERED: SODIUM CHLORIDE 0.9% 1,000 ML IV ONE (15:11)
[2019-12-22] MEDS ORDERED: PHENYLEPHRINE 1 MG/10 ML SYRINGE IV ONE (15:11)
[2019-12-22 15:17] LABS: ABG Base Excess -8.4 MMOL/L (-2.5-2.5); ABG HCO3 17.6 MMOL/L (20-26); ABG PCO2 32.6 MM HG (35-48); ABG PH 7.322 (7.35-7.45); ABG TCO2 15.9 MMOL/L (23-27); Glucose Heart Surgery 322 MG/DL (74-106); Hematocrit Heart Surgery 24.1 PERCENT (42-52); Hemoglobin Heart Surgery 7.7 G/DL (14.0-18.0); Potassium Heart/CVR 4.6 MMOL/L (3.5-5.1)
[2019-12-22] MEDS ORDERED: KETAMINE 500 MG/10 ML VIAL ONE (15:32)
[2019-12-22 15:54] LABS: Apearance,Urine CLOUDY (Clear); Bacteria,Urine Occasional /HPF (Few); Bilirubin,Urine Negative (Negative); Blood, Urine Small mg/dL (Negative); Glucose,Urine (UA) 50 mg/dL (Negative); Hyaline Casts,Urine 37 /LPF (0-3); Ketones,Urine Negative (Negative); Mucus,Urine Occasional /LPF (Occasional); Nitrite,Urine Negative (Negative); Protein,Urine 100 MG/DL; Squamous Epithelial Cell,Urine Occasional /HPF (0-10); Urine Color Amber (Yellow); Urine Specific Gravity 1.014 (1.001-1.035); WBC,Urine 2 /HPF (0-6)
[2019-12-22] MEDS ORDERED: FUROSEMIDE 40 MG/4 ML VIAL IV ONE (15:59)
[2019-12-22] MEDS: SODIUM CHLORIDE 0.45% 1,000 ML IV SCH (16:19)
[2019-12-22] MEDS ORDERED: FUROSEMIDE INJ 100 MG in SODIUM CHLORIDE 0.9% 90 ML IV SCH (17:00)
[2019-12-22 17:41] LABS: ABG Base Excess -6.6 MMOL/L (-2.5-2.5); ABG Oxygen Saturation 94.2 % (95-100); ABG PCO2 36.3 MM HG (35-48); ABG PH 7.323 (7.35-7.45); ABG PO2 80.8 MM HG (80-95); ABG TCO2 17.1 MMOL/L (23-27); Glucose Heart Surgery 326 MG/DL (74-106); Hematocrit Heart Surgery 33.5 PERCENT (42-52); Hemoglobin Heart Surgery 10.8 G/DL (14.0-18.0); Potassium Heart/CVR 4.2 MMOL/L (3.5-5.1)
[2019-12-22] MEDS: CHLORHEXIDINE 0.12% ORAL RINSE 60 ML BOTTLE SWISH/SPIT SCH (20:16)
[2019-12-22 20:44] LABS: ABG Base Excess -4.4 MMOL/L (-2.5-2.5); ABG HCO3 20.8 MMOL/L (20-26); ABG Oxygen Saturation 96.2 % (95-100); ABG PCO2 31.7 MM HG (35-48); ABG PH 7.397 (7.35-7.45); ABG PO2 81.9 MM HG (80-95); ABG TCO2 17.2 MMOL/L (23-27); Glucose Heart Surgery 223 MG/DL (74-106); Hematocrit Heart Surgery 37.7 PERCENT (42-52); Hemoglobin Heart Surgery 12.3 G/DL (14.0-18.0); Potassium Heart/CVR 3.8 MMOL/L (3.5-5.1)
[2019-12-22 20:56] LABS: Basophils % 0.1 % (0.0-0.8); Hematocrit 37.3 VOL% (42.0-52.0); Hemoglobin 11.7 GM/DL (14.0-18.0); Immature Granulocytes % 0.5 %; Immature Granulocytes Absolute 0.05 #; Lymphocytes # 1.3 10*3/uL (1.4-4.0); Lymphocytes % 14.5 % (21.2-54.2); Mean Corpuscular HGB Conc 31.4 GM/DL (32-36); Mean Corpuscular Volume 91.2 FL (87-102); Mean Platelet Volume 11.1 FL (9.6-12.0); Monocytes % 4.8 % (1.7-12.7); NRBC # 0.05 10*3/uL; Neutrophils % 80.1 % (38.7-73.9); Platelet Count 182 T/CUMM (130-400); Red Blood Count 4.09 MC/CUMM (3.8-5.5); White Blood Count 9.1 T/CUMM (4-12)
[2019-12-22] MEDS: POTASSIUM CHLORIDE RIDER 10 MEQ in PREMIX 1 EACH IV PRN ×3 (21:05→23:12)
[2019-12-22 21:12] LABS: INR 1.5; PT Patient Result 15.3 SECS (9.8-11.9); Partial Thromboplastin Time 28.4 SECS (23.9-33.8)
[2019-12-22 21:17] LABS: Albumin 2.9 G/DL (3.4-5.0); Bilirubin,Total 1.7 MG/DL (0.2-1.0); Total Protein 7.5 G/DL (6.4-8.3)
[2019-12-22 21:20] LABS: Troponin I 0.357 NG/ML (0.00-0.045)
[2019-12-22] MEDS: FUROSEMIDE INJ 100 MG in SODIUM CHLORIDE 0.9% 90 ML IV SCH (21:42)
[2019-12-22] MEDS: CEFUROXIME INJ 1,500 MG in SYRINGE 1 EACH IV SCH (22:47)
[2019-12-23 00:29] LABS: ABG Base Excess -1.9 MMOL/L (-2.5-2.5); ABG HCO3 22.8 MMOL/L (20-26); ABG Oxygen Saturation 97.9 % (95-100); ABG PCO2 30.3 MM HG (35-48); ABG PO2 94.3 MM HG (80-95); ABG TCO2 18.4 MMOL/L (23-27); Glucose Heart Surgery 85 MG/DL (74-106); Hematocrit Heart Surgery 38.4 PERCENT (42-52); Hemoglobin Heart Surgery 12.5 G/DL (14.0-18.0); Potassium Heart/CVR 4.3 MMOL/L (3.5-5.1)
[2019-12-23 02:10] LABS: ABG Base Excess -0.4 MMOL/L (-2.5-2.5); ABG HCO3 24.1 MMOL/L (20-26); ABG Oxygen Saturation 97.4 % (95-100); ABG PCO2 32.6 MM HG (35-48); ABG PH 7.453 (7.35-7.45); ABG PO2 88.6 MM HG (80-95); ABG TCO2 19.9 MMOL/L (23-27); Glucose Heart Surgery 79 MG/DL (74-106); Hematocrit Heart Surgery 38.7 PERCENT (42-52); Hemoglobin Heart Surgery 12.6 G/DL (14.0-18.0)
[2019-12-23] MEDS: DEXTROSE 50% 25 GM/50 ML VIAL IV PRN (02:10)
[2019-12-23 02:15] LABS: Basophils % 0.1 % (0.0-0.8); Eosinophils % 0.2 % (0.00-10.9); Hematocrit 38.1 VOL% (42.0-52.0); Hemoglobin 12.2 GM/DL (14.0-18.0); Immature Granulocytes % 0.5 %; Immature Granulocytes Absolute 0.05 #; Lymphocytes # 1.2 10*3/uL (1.4-4.0); Lymphocytes % 12.4 % (21.2-54.2); Mean Corpuscular Volume 90.1 FL (87-102); Mean Platelet Volume 11.4 FL (9.6-12.0); Monocytes % 9.1 % (1.7-12.7); NRBC # 0.11 10*3/uL; Neutrophils % 77.7 % (38.7-73.9); Platelet Count 215 T/CUMM (130-400); Red Blood Count 4.23 MC/CUMM (3.8-5.5); Red Cell Distribution Width 16.8 % (9.3-17.3); White Blood Count 9.8 T/CUMM (4-12)
[2019-12-23 02:32] LABS: Bilirubin,Direct 0.57 MG/DL (0.0-0.20); Bilirubin,Total 2.6 MG/DL (0.2-1.0); Calcium 8.1 MG/DL (8.5-10.1); Osmolality,Calculated 303.7 MOS/KG (273-304); Total Protein 7.3 G/DL (6.4-8.3)
[2019-12-23 02:38] LABS: Troponin I 0.477 NG/ML (0.00-0.045)
[2019-12-23 03:49] LABS: ABG Base Excess -0.3 MMOL/L (-2.5-2.5); ABG HCO3 24.2 MMOL/L (20-26); ABG Oxygen Saturation 98.2 % (95-100); ABG PCO2 31.7 MM HG (35-48); ABG PH 7.463 (7.35-7.45); ABG PO2 96.2 MM HG (80-95); ABG TCO2 19.8 MMOL/L (23-27); Glucose Heart Surgery 156 MG/DL (74-106); Hematocrit Heart Surgery 38.6 PERCENT (42-52); Hemoglobin Heart Surgery 12.6 G/DL (14.0-18.0); Potassium Heart/CVR 3.9 MMOL/L (3.5-5.1)
[2019-12-23] MEDS: POTASSIUM CHLORIDE RIDER 10 MEQ in PREMIX 1 EACH IV PRN (04:20)
[2019-12-23] MEDS: FUROSEMIDE INJ 100 MG in SODIUM CHLORIDE 0.9% 90 ML IV SCH (04:47)
[2019-12-23 05:47] LABS: ABG Base Excess -1.1 MMOL/L (-2.5-2.5); ABG HCO3 21.7 MMOL/L (20-26); ABG Oxygen Saturation 97.1 % (95-100); ABG PCO2 31.1 MM HG (35-48); ABG PH 7.462 (7.35-7.45); ABG PO2 93.3 MM HG (80-95); ABG TCO2 22.7 MMOL/L (23-27); Glucose Heart Surgery 115 MG/DL (74-106); Hemoglobin Heart Surgery 13.4 G/DL (14.0-18.0); Potassium Heart/CVR 4.2 MMOL/L (3.5-5.1)
[2019-12-23 07:16] LABS: Troponin I 0.473 NG/ML (0.00-0.045)
[2019-12-23] MEDS: CHLORHEXIDINE 0.12% ORAL RINSE 60 ML BOTTLE SWISH/SPIT SCH ×2 (08:13→21:24)
[2019-12-23] MEDS ORDERED: ATORVASTATIN 40 MG TABLET PO SCH (09:00)
[2019-12-23] MEDS ORDERED: ASPIRIN EC 81 MG TABLET PO SCH (09:00)
[2019-12-23] MEDS ORDERED: ATORVASTATIN 20 MG TABLET PO SCH (09:00)
[2019-12-23] MEDS: CEFUROXIME INJ 1,500 MG in SYRINGE 1 EACH IV SCH ×2 (09:22→23:18)
[2019-12-23] MEDS: INSULIN REGULAR 100 UNIT/ML SUBCUT PRN (11:46)
[2019-12-23] MEDS: cloNIDine 0.1 MG TABLET PO SCH ×2 (15:22→21:06)
[2019-12-23 15:46] LABS: Troponin I 0.558 NG/ML (0.00-0.045)
[2019-12-23] MEDS: FUROSEMIDE 40 MG/4 ML VIAL IV SCH (16:43)
[2019-12-23] MEDS: SODIUM CHLORIDE 0.45% 1,000 ML IV SCH ×2 (20:53→21:07)
[2019-12-23] MEDS: INSULIN GLARGINE 100 UNIT/ML SUBCUT SCH (21:06)
[2019-12-23] MEDS: MORPHINE 4 MG/1 ML VIAL IV PRN (21:07)
[2019-12-24] MEDS: INSULIN REGULAR 100 UNIT/ML SUBCUT PRN ×2 (00:25→12:34)
[2019-12-24 03:54] LABS: Basophils % 0.2 % (0.0-0.8); Eosinophils # 0.1 10*3/uL (0.0-0.87); Eosinophils % 1.1 % (0.00-10.9); Hematocrit 37.8 VOL% (42.0-52.0); Immature Granulocytes % 0.6 %; Immature Granulocytes Absolute 0.06 #; Lymphocytes # 1.4 10*3/uL (1.4-4.0); Lymphocytes % 14.4 % (21.2-54.2); Mean Corpuscular HGB Conc 31.7 GM/DL (32-36); Mean Corpuscular Volume 90.4 FL (87-102); Mean Platelet Volume 11.8 FL (9.6-12.0); NRBC # 0.03 10*3/uL; Neutrophils % 75.7 % (38.7-73.9); Platelet Count 179 T/CUMM (130-400); Red Blood Count 4.18 MC/CUMM (3.8-5.5); Red Cell Distribution Width 17.1 % (9.3-17.3); White Blood Count 9.5 T/CUMM (4-12)
[2019-12-24 04:27] LABS: Albumin 2.1 G/DL (3.4-5.0); Bilirubin,Direct 0.31 MG/DL (0.0-0.20); Bilirubin,Total 1.2 MG/DL (0.2-1.0); Calcium 7.8 MG/DL (8.5-10.1); Total Protein 6.4 G/DL (6.4-8.3)
[2019-12-24] MEDS: DEXTROSE 50% 25 GM/50 ML VIAL IV PRN (05:26)
[2019-12-24] MEDS: FUROSEMIDE 40 MG/4 ML VIAL IV SCH ×2 (07:54→15:20)
[2019-12-24] MEDS: cloNIDine 0.1 MG TABLET PO SCH ×2 (08:48→21:18)
[2019-12-24] MEDS: ASPIRIN EC 81 MG TABLET PO SCH (08:48)
[2019-12-24] MEDS: PANTOPRAZOLE 40 MG TABLET PO SCH (08:48)
[2019-12-24] MEDS: CHLORHEXIDINE 0.12% ORAL RINSE 60 ML BOTTLE SWISH/SPIT SCH ×2 (08:48→21:19)
[2019-12-24] MEDS ORDERED: METOPROLOL SUCCINATE XL 25 MG TABLET PO SCH (09:00)
[2019-12-24] MEDS ORDERED: POTASSIUM CHLORIDE 20 MEQ TABLET PO ONE (10:23)
[2019-12-24] MEDS: MORPHINE 4 MG/1 ML VIAL IV PRN (10:28)
[2019-12-24] MEDS: SODIUM CHLORIDE 0.45% 1,000 ML IV SCH ×2 (10:30→10:33)
[2019-12-24] MEDS ORDERED: ONDANSETRON 4 MG/2 ML VIAL IV PRN (11:02)
[2019-12-24] MEDS ORDERED: DEXTROSE 50% 25 GM/50 ML VIAL IV PRN ×2 (11:02)
[2019-12-24] MEDS ORDERED: GLUCAGON 1 MG VIAL IM PRN ×2 (11:02)
[2019-12-24] MEDS ORDERED: MAGNESIUM SULF RIDER 4 GM in PREMIX 1 EACH IV PRN (11:02)
[2019-12-24] MEDS ORDERED: MAGNESIUM SULF RIDER 2 GM in PREMIX 1 EACH IV PRN (11:02)
[2019-12-24] MEDS ORDERED: ALUMINUM/MAGNES/SIMETH MAX STR 30 ML UDCUP PO PRN (11:02)
[2019-12-24] MEDS ORDERED: ZALEPLON 5 MG CAPSULE PO PRN (11:02)
[2019-12-24] MEDS ORDERED: ACETAMINOPHEN 325 MG TABLET PO PRN (11:02)
[2019-12-24] MEDS ORDERED: MAGNESIUM HYDROXIDE SUSP 30 ML UDCUP PO PRN (11:02)
[2019-12-24] MEDS ORDERED: SODIUM CHLOR 0.45% KCL 20 MEQ 20 MEQ/1,000 ML BAG IV SCH (11:30)
[2019-12-24] MEDS: INSULIN GLARGINE 100 UNIT/ML SUBCUT SCH (21:24)
[2019-12-25] MEDS ORDERED: oxyCODONE/ACETAMINOPHEN 5-325 MG TABLET PO PRN (00:58)
[2019-12-25] MEDS: MORPHINE 4 MG/1 ML VIAL IV PRN ×6 (01:04→23:05)
[2019-12-25] MEDS ORDERED: FUROSEMIDE 40 MG/4 ML VIAL IV ONE (06:00)
[2019-12-25 06:30] LABS: Basophils % 0.2 % (0.0-0.8); Eosinophils % 0.2 % (0.00-10.9); Hematocrit 37.6 VOL% (42.0-52.0); Hemoglobin 12.3 GM/DL (14.0-18.0); Immature Granulocytes % 1.1 %; Immature Granulocytes Absolute 0.14 #; Lymphocytes # 1.1 10*3/uL (1.4-4.0); Lymphocytes % 8.5 % (21.2-54.2); Mean Corpuscular HGB Conc 32.7 GM/DL (32-36); Mean Corpuscular Volume 88.5 FL (87-102); Mean Platelet Volume 11.8 FL (9.6-12.0); Monocytes % 8.1 % (1.7-12.7); Neutrophils % 81.9 % (38.7-73.9); Platelet Count 163 T/CUMM (130-400); Red Blood Count 4.25 MC/CUMM (3.8-5.5); Red Cell Distribution Width 16.1 % (9.3-17.3); White Blood Count 12.7 T/CUMM (4-12)
[2019-12-25 07:08] LABS: Alanine Aminotransferase 155 U/L (16-61); Albumin 2.1 G/DL (3.4-5.0); Alkaline Phosphatase 198 U/L (45-117); Aspartate Amino Transferase 52 U/L (0-37); Bilirubin,Indirect 0.9 MG/DL (0.0-1.0); Blood Urea Nitrogen 30 MG/DL (7-18); Estimated Glom Filtration Rate 58 ML/MIN; Glucose 139 MG/DL (74-106); Osmolality,Calculated 286.4 MOS/KG (273-304); Total Protein 6.8 G/DL (6.4-8.3)
[2019-12-25 07:12] LABS: Troponin I 0.366 NG/ML (0.00-0.045)
[2019-12-25] MEDS: INSULIN REGULAR 100 UNIT/ML SUBCUT SCH ×4 (08:03→20:50)
[2019-12-25] MEDS ORDERED: DOCUSATE SODIUM 100 MG CAPSULE PO SCH (09:00)
[2019-12-25] MEDS: FUROSEMIDE 40 MG/4 ML VIAL IV SCH ×2 (09:15→16:51)
[2019-12-25] MEDS: PANTOPRAZOLE 40 MG TABLET PO SCH (09:16)
[2019-12-25] MEDS: cloNIDine 0.1 MG TABLET PO SCH ×2 (09:16→20:50)
[2019-12-25] MEDS: CHLORHEXIDINE 0.12% ORAL RINSE 60 ML BOTTLE SWISH/SPIT SCH ×2 (09:16→20:51)
[2019-12-25] MEDS: ASPIRIN EC 81 MG TABLET PO SCH (09:16)
[2019-12-25] MEDS: INSULIN GLARGINE 100 UNIT/ML SUBCUT SCH (20:50)
[2019-12-26] MEDS: MORPHINE 4 MG/1 ML VIAL IV PRN ×4 (01:22→04:59)
[2019-12-26 06:59] LABS: Basophils % 0.1 % (0.0-0.8); Eosinophils # 0.1 10*3/uL (0.0-0.87); Eosinophils % 0.5 % (0.00-10.9); Hematocrit 36.3 VOL% (42.0-52.0); Hemoglobin 11.8 GM/DL (14.0-18.0); Immature Granulocytes % 1.1 %; Immature Granulocytes Absolute 0.18 #; Lymphocytes # 1.2 10*3/uL (1.4-4.0); Lymphocytes % 7.2 % (21.2-54.2); Mean Corpuscular HGB Conc 32.5 GM/DL (32-36); Mean Corpuscular Volume 88.3 FL (87-102); Mean Platelet Volume 11.5 FL (9.6-12.0); Monocytes % 9.2 % (1.7-12.7); Neutrophils % 81.9 % (38.7-73.9); Platelet Count 164 T/CUMM (130-400); Red Blood Count 4.11 MC/CUMM (3.8-5.5); Red Cell Distribution Width 15.7 % (9.3-17.3); White Blood Count 16.9 T/CUMM (4-12)
[2019-12-26 07:44] LABS: Alanine Aminotransferase 109 U/L (16-61); Albumin 1.9 G/DL (3.4-5.0); Alkaline Phosphatase 175 U/L (45-117); Aspartate Amino Transferase 42 U/L (0-37); Bilirubin,Indirect 1.1 MG/DL (0.0-1.0); Blood Urea Nitrogen 32 MG/DL (7-18); Calcium 8.1 MG/DL (8.5-10.1); Estimated Glom Filtration Rate 51 ML/MIN; Osmolality,Calculated 284.3 MOS/KG (273-304); Total Protein 6.7 G/DL (6.4-8.3)
[2019-12-26 07:51] LABS: Troponin I 0.277 NG/ML (0.00-0.045)
[2019-12-26 07:53] LABS: Glucose 50 MG/DL (74-106)
[2019-12-26] MEDS: INSULIN REGULAR 100 UNIT/ML SUBCUT SCH ×4 (08:45→21:07)
[2019-12-26] MEDS: PANTOPRAZOLE 40 MG TABLET PO SCH (09:15)
[2019-12-26] MEDS: cloNIDine 0.1 MG TABLET PO SCH ×2 (09:15→21:06)
[2019-12-26] MEDS: ASPIRIN EC 81 MG TABLET PO SCH (09:15)
[2019-12-26] MEDS: FUROSEMIDE 40 MG/4 ML VIAL IV SCH ×2 (09:15→16:32)
[2019-12-26] MEDS: CHLORHEXIDINE 0.12% ORAL RINSE 60 ML BOTTLE SWISH/SPIT SCH ×2 (09:15→21:06)
[2019-12-26] MEDS: POTASSIUM CHLORIDE 20 MEQ TABLET PO PRN ×3 (10:01→13:03)
[2019-12-26] MEDS: INSULIN GLARGINE 100 UNIT/ML SUBCUT SCH (21:06)
[2019-12-27 05:37] LABS: Albumin 1.7 G/DL (3.4-5.0); Bilirubin,Total 1.4 MG/DL (0.2-1.0); Calcium 8.1 MG/DL (8.5-10.1); Osmolality,Calculated 285.3 MOS/KG (273-304); Total Protein 6.7 G/DL (6.4-8.3)
[2019-12-27 06:11] LABS: Basophils % 0.2 % (0.0-0.8); Eosinophils # 0.3 10*3/uL (0.0-0.87); Eosinophils % 1.4 % (0.00-10.9); Hematocrit 36.4 VOL% (42.0-52.0); Hemoglobin 11.4 GM/DL (14.0-18.0); Immature Granulocytes % 0.6 %; Lymphocytes # 2.5 10*3/uL (1.4-4.0); Lymphocytes % 14.4 % (21.2-54.2); Mean Corpuscular HGB Conc 31.3 GM/DL (32-36); Mean Corpuscular Volume 90.5 FL (87-102); Mean Platelet Volume 11.5 FL (9.6-12.0); Monocytes % 9.3 % (1.7-12.7); Neutrophils % 74.1 % (38.7-73.9); Platelet Count 155 T/CUMM (130-400); Red Blood Count 4.02 MC/CUMM (3.8-5.5); Red Cell Distribution Width 15.6 % (9.3-17.3); White Blood Count 17.3 T/CUMM (4-12)
[2019-12-27] MEDS: INSULIN REGULAR 100 UNIT/ML SUBCUT SCH ×4 (10:14→20:14)
[2019-12-27] MEDS: PANTOPRAZOLE 40 MG TABLET PO SCH (10:16)
[2019-12-27] MEDS: ASPIRIN EC 81 MG TABLET PO SCH (10:16)
[2019-12-27] MEDS: cloNIDine 0.1 MG TABLET PO SCH ×2 (10:17→20:14)
[2019-12-27] MEDS: FUROSEMIDE 40 MG/4 ML VIAL IV SCH ×2 (10:17→16:47)
[2019-12-27] MEDS: CHLORHEXIDINE 0.12% ORAL RINSE 60 ML BOTTLE SWISH/SPIT SCH ×2 (10:22→20:14)
[2019-12-27] MEDS: cefTRIAXone 2,000 MG in SYRINGE 1 EACH IV SCH (12:41)
[2019-12-27] MEDS: INSULIN GLARGINE 100 UNIT/ML SUBCUT SCH (20:14)
[2019-12-27] MEDS: carvediloL 3.125 MG TABLET PO SCH (20:17)
[2019-12-28 05:23] LABS: Basophils # 0.1 10*3/uL (0.0-0.2); Basophils % 0.3 % (0.0-0.8); Eosinophils # 0.2 10*3/uL (0.0-0.87); Eosinophils % 1.5 % (0.00-10.9); Hematocrit 36.5 VOL% (42.0-52.0); Hemoglobin 11.4 GM/DL (14.0-18.0); Immature Granulocytes % 0.8 %; Immature Granulocytes Absolute 0.12 #; Lymphocytes # 2.2 10*3/uL (1.4-4.0); Lymphocytes % 13.7 % (21.2-54.2); Mean Corpuscular HGB Conc 31.2 GM/DL (32-36); Mean Corpuscular Volume 91.7 FL (87-102); Mean Platelet Volume 12.3 FL (9.6-12.0); Monocytes % 8.1 % (1.7-12.7); NRBC # 0.02 10*3/uL; Neutrophils % 75.6 % (38.7-73.9); Platelet Count 165 T/CUMM (130-400); Red Blood Count 3.98 MC/CUMM (3.8-5.5); Red Cell Distribution Width 15.8 % (9.3-17.3); White Blood Count 15.7 T/CUMM (4-12)
[2019-12-28 06:06] LABS: Alanine Aminotransferase 95 U/L (16-61); Albumin 1.8 G/DL (3.4-5.0); Alkaline Phosphatase 181 U/L (45-117); Aspartate Amino Transferase 65 U/L (0-37); Bilirubin,Indirect 1.7 MG/DL (0.0-1.0); Blood Urea Nitrogen 30 MG/DL (7-18); Calcium 8.1 MG/DL (8.5-10.1); Estimated Glom Filtration Rate 50 ML/MIN; Osmolality,Calculated 281.4 MOS/KG (273-304); Total Protein 6.9 G/DL (6.4-8.3)
[2019-12-28 06:08] LABS: Glucose 44 MG/DL (74-106); Troponin I 0.206 NG/ML (0.00-0.045)
[2019-12-28] MEDS: ASPIRIN EC 81 MG TABLET PO SCH (08:47)
[2019-12-28] MEDS: PANTOPRAZOLE 40 MG TABLET PO SCH (08:47)
[2019-12-28] MEDS: cloNIDine 0.1 MG TABLET PO SCH (08:47)
[2019-12-28] MEDS: carvediloL 3.125 MG TABLET PO SCH (08:47)
[2019-12-28] MEDS: CHLORHEXIDINE 0.12% ORAL RINSE 60 ML BOTTLE SWISH/SPIT SCH (08:48)
[2019-12-28] MEDS: FUROSEMIDE 40 MG/4 ML VIAL IV SCH (08:51)
[2019-12-28] MEDS: INSULIN REGULAR 100 UNIT/ML SUBCUT SCH ×2 (09:49→12:54)
[2019-12-28] MEDS: cefTRIAXone 2,000 MG in SYRINGE 1 EACH IV SCH (12:56)
[2019-12-28 16:38] VITALS: BP 133/74
== END 2019-12-28 18:00 | disposition home health service (06) | DRG 314 ==
LOC: EDUNIT# → EDBD → N.ED 19:06 → N.EDINP 19:06 → SUATTDRO 12-22 00:22 → OBSVTOIN 12-22 00:22 → N.EDINP 12-22 09:10 → N.TELEN 12-22 09:31 → N.CVR 12-22 13:16 → N.ICU 12-23 07:44 → N.TELES 12-24 14:14
PROVIDERS: ADMIT Internal Medicine; ATTEND Internal Medicine

== ENCOUNTER 2020-01-05 13:54 | Inpatient (IN) ==
[2020-01-05] MEDS ORDERED: ONDANSETRON 4 MG/2 ML VIAL IV PRN (13:59)
[2020-01-05] MEDS ORDERED: MAGNESIUM SULF RIDER 4 GM in PREMIX 1 EACH IV PRN (13:59)
[2020-01-05] MEDS ORDERED: MAGNESIUM SULF RIDER 2 GM in PREMIX 1 EACH IV PRN (13:59)
[2020-01-05] MEDS ORDERED: ACETAMINOPHEN 325 MG TABLET PO PRN (13:59)
[2020-01-05] MEDS ORDERED: ZALEPLON 5 MG CAPSULE PO PRN (13:59)
[2020-01-05] MEDS ORDERED: LIDOCAINE 1% 20 ML VIAL ONE (14:41)
[2020-01-05] MEDS ORDERED: HYDROmorphone 2 MG/1 ML VIAL ONE (15:28)
[2020-01-05] MEDS ORDERED: MIDAZOLAM 2 MG/2 ML VIAL ONE (15:29)
[2020-01-05] MEDS ORDERED: SODIUM CHLORIDE 0.9% 1,000 ML IV SCH (15:30)
[2020-01-05] MEDS ORDERED: ALTEPLASE 12 MG in SODIUM CHLORIDE 0.9% 240 ML IV SCH (15:30)
[2020-01-05] MEDS: HEPARIN DRIP 25,000 UNITS/500 ML PREMIX IV SCH (16:37)
[2020-01-05 17:27] LABS: INR 1.2
[2020-01-05] MEDS ORDERED: oxyCODONE/ACETAMINOPHEN 5-325 MG TABLET PO PRN (17:34)
[2020-01-05] MEDS: INSULIN REGULAR 100 UNIT/ML SUBCUT SCH (18:23)
[2020-01-05] MEDS: cloNIDine 0.1 MG TABLET PO SCH (21:10)
[2020-01-05] MEDS: DOCUSATE SODIUM 100 MG CAPSULE PO SCH (21:11)
[2020-01-05] MEDS: BIMATOPROST 0.01% OPH SOLN 2.5 ML BOTTLE BOTH EYES SCH (21:11)
[2020-01-06] MEDS: INSULIN REGULAR 100 UNIT/ML SUBCUT SCH ×5 (00:06→21:08)
[2020-01-06 04:20] LABS: Basophils % 0.2 % (0.0-0.8); Eosinophils # 0.1 10*3/uL (0.0-0.87); Eosinophils % 0.7 % (0.00-10.9); Hematocrit 31.6 VOL% (42.0-52.0); Hemoglobin 10.1 GM/DL (14.0-18.0); Immature Granulocytes % 0.7 %; Immature Granulocytes Absolute 0.11 #; Lymphocytes # 2.3 10*3/uL (1.4-4.0); Lymphocytes % 14.7 % (21.2-54.2); Mean Corpuscular Volume 89.5 FL (87-102); Mean Platelet Volume 11.1 FL (9.6-12.0); Monocytes % 8.1 % (1.7-12.7); Neutrophils % 75.6 % (38.7-73.9); Platelet Count 237 T/CUMM (130-400); Red Blood Count 3.53 MC/CUMM (3.8-5.5); Red Cell Distribution Width 15.6 % (9.3-17.3); White Blood Count 15.6 T/CUMM (4-12)
[2020-01-06 04:54] LABS: INR 1.3; PT Patient Result 14.2 SECS (9.8-11.9)
[2020-01-06] MEDS: HEPARIN DRIP 25,000 UNITS/500 ML PREMIX IV SCH (04:59)
[2020-01-06 05:32] LABS: Alanine Aminotransferase 58 U/L (16-61); Albumin 1.6 G/DL (3.4-5.0); Alkaline Phosphatase 168 U/L (45-117); Aspartate Amino Transferase 57 U/L (0-37); Blood Urea Nitrogen 22 MG/DL (7-18); Estimated Glom Filtration Rate 61 ML/MIN; Glucose 109 MG/DL (74-106); Osmolality,Calculated 286.1 MOS/KG (273-304); Total Protein 6.1 G/DL (6.4-8.3)
[2020-01-06] MEDS ORDERED: ASPIRIN 325 MG TABLET PO SCH (09:00)
[2020-01-06] MEDS: cloNIDine 0.1 MG TABLET PO SCH ×3 (09:53→21:07)
[2020-01-06] MEDS: PANTOPRAZOLE 40 MG TABLET PO SCH (09:53)
[2020-01-06] MEDS: sitaGLIPtin 25 MG TABLET PO SCH (09:54)
[2020-01-06] MEDS: DOCUSATE SODIUM 100 MG CAPSULE PO SCH ×2 (09:54→21:08)
[2020-01-06] MEDS: METOPROLOL SUCCINATE XL 25 MG TABLET PO SCH (09:54)
[2020-01-06] MEDS: amLODIPine 10 MG TABLET PO SCH (09:54)
[2020-01-06] MEDS: ASPIRIN EC 81 MG TABLET PO SCH (09:54)
[2020-01-06] MEDS: ATORVASTATIN 20 MG TABLET PO SCH (09:54)
[2020-01-06] MEDS ORDERED: ASPIRIN EC 81 MG TABLET PO SCH (10:00)
[2020-01-06] MEDS: APIXABAN 5 MG TABLET PO SCH ×2 (13:22→21:08)
[2020-01-06] MEDS ORDERED: cefTRIAXone 1,000 MG in SYRINGE 1 EACH IV SCH (18:00)
[2020-01-06] MEDS: SULFAMETHOX/TRIMETHOPRIM 800-160 MG TABLET PO SCH (21:07)
[2020-01-06] MEDS: BIMATOPROST 0.01% OPH SOLN 2.5 ML BOTTLE BOTH EYES SCH (21:08)
[2020-01-07 04:35] LABS: Basophils % 0.2 % (0.0-0.8); Eosinophils # 0.2 10*3/uL (0.0-0.87); Eosinophils % 1.2 % (0.00-10.9); Hematocrit 33.5 VOL% (42.0-52.0); Immature Granulocytes % 0.8 %; Immature Granulocytes Absolute 0.11 #; Lymphocytes # 1.6 10*3/uL (1.4-4.0); Lymphocytes % 12.2 % (21.2-54.2); Mean Corpuscular HGB Conc 29.9 GM/DL (32-36); Mean Platelet Volume 11.4 FL (9.6-12.0); Monocytes % 8.2 % (1.7-12.7); Neutrophils % 77.4 % (38.7-73.9); Platelet Count 242 T/CUMM (130-400); Red Blood Count 3.64 MC/CUMM (3.8-5.5); Red Cell Distribution Width 15.6 % (9.3-17.3); White Blood Count 13.3 T/CUMM (4-12)
[2020-01-07 05:06] LABS: Calcium 7.8 MG/DL (8.5-10.1); Osmolality,Calculated 285.1 MOS/KG (273-304)
[2020-01-07] MEDS: INSULIN REGULAR 100 UNIT/ML SUBCUT SCH ×3 (08:55→16:24)
[2020-01-07] MEDS ORDERED: ASPIRIN EC 81 MG TABLET PO SCH (09:00)
[2020-01-07] MEDS: ATORVASTATIN 20 MG TABLET PO SCH (09:02)
[2020-01-07] MEDS: sitaGLIPtin 25 MG TABLET PO SCH (09:02)
[2020-01-07] MEDS: DOCUSATE SODIUM 100 MG CAPSULE PO SCH (09:02)
[2020-01-07] MEDS: METOPROLOL SUCCINATE XL 25 MG TABLET PO SCH (09:02)
[2020-01-07] MEDS: PANTOPRAZOLE 40 MG TABLET PO SCH (09:03)
[2020-01-07] MEDS: ASPIRIN EC 81 MG TABLET PO SCH (09:03)
[2020-01-07] MEDS: amLODIPine 10 MG TABLET PO SCH (09:03)
[2020-01-07] MEDS: cloNIDine 0.1 MG TABLET PO SCH ×2 (09:03→16:24)
[2020-01-07] MEDS: SULFAMETHOX/TRIMETHOPRIM 800-160 MG TABLET PO SCH (09:04)
[2020-01-07] MEDS: APIXABAN 5 MG TABLET PO SCH (09:05)
[2020-01-07 16:29] VITALS: BP 134/68
== END 2020-01-07 17:20 | disposition home health service (06) | DRG 175 ==
LOC: N.ICU 15:09 → N.TELES 01-07 10:36
PROVIDERS: ADMIT Internal Medicine Cardiovascular Disease; ATTEND Internal Medicine Cardiovascular Disease